=== PATIENT | female | born 1965 | race Caucasian/White ===

== ENCOUNTER 2016-11-08 14:13 | Emergency (ER) | payer MEDICAID ==
[2016-11-08 16:18] LABS: BASOPHILS 0.5 % (0-2); EOSINOPHILS 7.5 % (0-7); HEMATOCRIT 38.4 % (36.0-48.0); HEMOGLOBIN 12.8 g/dL (12-16); IMMATURE GRANULOCYTES 0.4 % (0-5); LYMPHOCYTES 32.3 % (15-50); MCH 30.2 pg (26.0-34.0); MCHC 33.3 g/dL (31.0-37.0); MCV 90.6 fL (80.0-100.0); MEAN PLATELET VOLUME 10.2 fL (7.4-10.4); MONOCYTES 4.6 % (2-11); NEUTROPHILS 54.7 % (40-80); PLATELET COUNT 262 10x3/uL (130-400); RBC 4.24 10x6/uL (4.00-5.40); WBC 8.5 10x3/uL (4.8-10.8)
[2016-11-08 16:31] LABS: ALBUMIN 3.2 g/dL (3.4-5.0); ALKALINE PHOSPHATASE 72 U/L (46-116); ALT (SGPT) 75 U/L (10-68); CALC OSMOLALITY 284 mosm/kg (275-300); CALCIUM 8.7 mg/dL (8.5-10.1); CHLORIDE - SERUM 107 mmol/L (98-107); CREATININE - SERUM 0.8 mg/dL (0.6-1.3); GLUCOSE 90 mg/dL (74-106); POTASSIUM - SERUM 3.3 mmol/L (3.5-5.1); PROTEIN - SERUM 7.3 g/dL (6.4-8.2); SODIUM 144 mmol/L (136-145); UREA NITROGEN 6 mg/dL (7-18); eGFR NON AFRICAN AMERICAN 80 mL/min (90-120)
== END 2016-11-08 17:17 | disposition home or self-care (01) ==
LOC: D.ER 14:13
PROVIDERS: Physician Assistant
DX: R51 Headache (principal); F17.200 Nicotine dependence, unspecified, uncomplicated

== ENCOUNTER → 2019-11-17 10:34 | Outpatient (CLI) | payer MEDICARE | END | disposition home or self-care (01) | LOC: D.MRI 11-12 14:30 | PROVIDERS: ATTEND Orthopaedic Surgery | DX: M87.851 Other osteonecrosis, right femur (principal) ==

== ENCOUNTER 2019-12-03 05:57 | Day surgery (SDC) | payer MEDICARE ==
[~2019-12-03] VITALS: Ht 154.9 cm; Wt 90.7 kg
[~2019-12-03 05:57] MED LIST: ABILIFY10 MG PO; ALENDRONATE SOD10 MG PO; CHLORTHALIDONE25 MG PO; DEPAKOTE250 MG PO; KLONOPIN1 MG PO; NORVASC5 MG PO; PROZAC20 MG PO; SYNTHROID125 MCG PO; TENORMIN50 MG PO; TYLENOL W/CODEI1 TAB PO; ZANAFLEX4 MG PO
[2019-12-03 06:19] LABS: HEMATOCRIT 44.4 % (36.0-48.0); HEMOGLOBIN 14.1 g/dL (12-16); MCH 30.1 pg (26.0-34.0); MCHC 31.8 g/dL (31.0-37.0); MCV 94.9 fL (80.0-100.0); MEAN PLATELET VOLUME 9.9 fL (7.4-10.4); RBC 4.68 10x6/uL (4.00-5.40); RDW 13.7 % (11.5-14.5); WBC 8.2 10x3/uL (4.8-10.8)
[2019-12-03 06:30] LABS: CALC OSMOLALITY 279 mosm/kg (275-300); CALCIUM 8.9 mg/dL (8.5-10.1); CARBON DIOXIDE 34.4 mmol/L (21.0-32.0); CHLORIDE - SERUM 101 mmol/L (98-107); CREATININE - SERUM 0.8 mg/dL (0.6-1.3); GLUCOSE 95 mg/dL (74-106); POTASSIUM - SERUM 3.4 mmol/L (3.5-5.1); SODIUM 140 mmol/L (136-145); UREA NITROGEN 15 mg/dL (7-18); eGFR NON AFRICAN AMERICAN 79 mL/min (90-120)
[2019-12-03 07:22] VITALS: BP 121/80; Ht 154.9 cm; Wt 90.7 kg
--- NOTE | 2019-12-03 09:30 | NUR ---
DC INSTRUCTIONS GIVEN TO PT/FAMILY. STATE UNDERSTANDING. DC'D IV CATH FULLY INTACT. PT VOIDED. PT LEFT UNIT VIA AT 0921.
--- NOTE | 2019-12-05 09:12 | OP ---
PATIENT NAME: BULMARO CURIEL MEDICAL RECORD: [id number] :63 LOCATION:D.OPS ADMISSION DATE: SURGEON: TREVER SHAFFER MD DATE OF OPERATION: 12/03/2019 PREOPERATIVE DIAGNOSIS: Bilateral hip arthritis with bilateral trochanteric bursitis. POSTOPERATIVE DIAGNOSES: Bilateral hip arthritis with bilateral trochanteric bursitis. PROCEDURE: 1. Bilateral intraarticular injections into both hips. 2. Bilateral hip bursa injection into both hips all under fluoroscopic guidance. SURGEON: Trever Shaffer MD INTRAOPERATIVE COMPLICATIONS TIVA. OPERATIVE SUMMARY IN DETAIL: After obtaining the appropriate preoperative orthopedic surgery consent as well as anesthetic consultation, evaluation and clearance, the patient was brought to the operating room and placed on the fluoroscopic table in supine position. After adequate TIVA had been administered to bilateral hips, both the inguinal and the trochanteric bursa region were prepped and draped in routine sterile fashion. Attention was first turned to the right hip, 18-gauge needle was directed directly into the right hip. A small amount of Isovue was placed to be sure that the needle was in the appropriate position and then 40 cc of Depo-Medrol and 3 cc of 0.25% Marcaine with epinephrine were injected into the hip. At this point, a second 18-gauge needle was then directed into the area of the greater trochanter under fluoroscopic guidance. A 40 cc of Depo-Medrol and 3 cc of 0.25% Marcaine with epinephrine were injected into the trochanteric bursa. Bandages were applied. Attention was then turned to the left hip, again, under fluoroscopic guidance, an 18-gauge needle was directed into the hip capsule itself. Small amount of Isovue was utilized to be sure the hip was in the appropriate position and then the 40 and 3 were placed into the patient's hip and again lastly under fluoroscopic guidance, an 18-gauge needle was placed on the area of the lateral trochanteric bursa and 40 cc of Depo-Medrol and 3 cc of 0.25% Marcaine were injected into the patient's left hip. All puncture sites were covered. The patient was awakened and taken back to outpatient in stable condition. All final needle and sponge counts were correct. TRANSINT:[id number] Voice Confirmation ID: [id number] DOCUMENT ID: [id number] TREVER SHAFFER MD at 0912 CC: [id number] DICTATION DATE: 12/04/19 111 MANAGER LONG TERM CARE: 12/04/19 2137 [facility] 12/03/19 [id number] [place] [address]
== END 2019-12-03 09:21 | disposition home or self-care (01) ==
LOC: D.OPS 05:57 → D.PAN 08:45 → D.OPS 09:21
PROVIDERS: Anesthesiology; ATTEND Orthopaedic Surgery
DX: M16.0 Bilateral primary osteoarthritis of hip (principal); M70.62 Trochanteric bursitis, left hip; M70.61 Trochanteric bursitis, right hip; I10 Essential (primary) hypertension; Z72.0 Tobacco use